=== PATIENT | female | born 1955 | race Caucasian/White ===

== ENCOUNTER 2019-01-18 17:12 | Emergency (ER) | payer SELFPAY ==
[~2019-01-18] VITALS: Ht 165.1 cm; Wt 49.9 kg
--- NOTE | 2019-01-18 19:11 | NUR ---
RECEIVED HAND OFF AND SBAR FROM OUTGOING DAY SH[employer] PT ERNESTINA MENG AT BEDSIDE FOR UPDATE
--- NOTE | 2019-01-18 20:25 | NUR ---
Patient discharged to home in stable conditon. Written and verbal after care instructions given. Patient verbalizes understanding of instructions.
[2019-01-18 22:52] VITALS: BP 126/86
== END 2019-01-18 20:25 | disposition home or self-care (01) ==
LOC: ER 17:17
DX: S16.1XXA Strain of muscle, fascia and tendon at neck level, initial encounter (principal); S39.012A Strain of muscle, fascia and tendon of lower back, initial encounter; D32.9 Benign neoplasm of meninges, unspecified; V89.2XXA Person injured in unspecified motor-vehicle accident, traffic, initial encounter; Y93.89 Activity, other specified; Y92.89 Other specified places as the place of occurrence of the external cause; Y99.8 Other external cause status
CPT/HCPCS: 70450; 72125; 72131; A4663